=== PATIENT | female | born 2000 | race Caucasian/White ===

== ENCOUNTER 2022-05-30 19:20 | Emergency (ER) | payer OTHER ==
[2022-05-30] MEDS ORDERED: XYLOCAINE 1% HCL 20 ML MDV IJ ONE (19:21)
--- NOTE | 2022-05-30 19:27 | ERPHSYRPT ---
- History of Present Illness Time Seen by Provider: 05/30/22 19:27 Source: patient Exam Limitations: no limitations Physician History: This is a 21-year-old white female patient who approximately 3 days ago noticed some swelling and pain in the left tonsil area. Patient was seen by her primary care physician, Dr. June who diagnosed the patient with tonsillitis. She received an intramuscular dose of Rocephin followed by a prescription for Augmentin antibiotic. She took 2 doses of that medication. Today, patient states that she feels that there is greater amount of swelling in the left tonsil as well as increased left side cervical adenopathy. Patient has no stridor. She has no difficulty breathing. Father looked at the patient's oropharynx and noticed there was fibrinous exudate on her left tonsil that was not there previously. Severity: mild Prearrival Treatment: prescription meds Associated Symptoms: swollen glands (Left upper cervical chain), sore throat, No difficulty swallowing, No voice change Allergies/Adverse Reactions: cinnamon Allergy (Mild, Verified 05/30/22 19:26) Home Medications: No Reportable Medications [No Reported Medications] 08/28/15 [History] Hx Tetanus, Diphtheria Vaccination/Date Given: Yes (4 years) Hx Influenza Vaccination/Date Given: No Hx Pneumococcal Vaccination/Date Given: No Travel Risk - International Travel Have you traveled outside of the country in past 3 weeks: No - Coronavirus Screening Are you exhibiting any of the following symptoms?: No Close contact with a COVID-19 positive Pt in past 14-21 Days: No - Review of Systems Constitutional: No Symptoms Eyes: No Symptoms Ears, Nose, & Throat: Other (Mild pain when swallowing. Swollen left tonsil) Respiratory: No Symptoms, No Stridor, No Wheezing Cardiac: No Symptoms Abdominal/Gastrointestinal: No Abdominal Pain Genitourinary Symptoms: No Symptoms Musculoskeletal: No Symptoms Skin: No Symptoms Neurological: No Symptoms Psychological: No Symptoms Endocrine: No Symptoms Hematologic/Lymphatic: No Symptoms Immunological/Allergic: No Symptoms All Other Systems: Reviewed and Negative - Past Medical History Pertinent Past Medical History: No Neurological History: No Pertinent History ENT History: No Pertinent History Cardiac History: No Pertinent History Respiratory History: No Pertinent History Endocrine Medical History: No Pertinent History Musculoskeletal History: No Pertinent History GI Medical History: No Pertinent History History: No Pertinent History Psycho-Social History: No Pertinent History Female Reproductive Disorders: No Pertinent History - Past Surgical History Past Surgical History: No Neuro Surgical History: No Pertinent History Cardiac: No Pertinent History Respiratory: No Pertinent History Gastrointestinal: No Pertinent History Genitourinary: No Pertinent History Musculoskeletal: No Pertinent History Female Surgical History: No Pertinent History - Social History Smoking Status: Never smoker Exposure to second hand smoke: Yes Drug Use: none Patient Lives Alone: No - Nursing Vital Signs Nursing Vital Signs: Initial Vital Signs Temperature 97.8 F 05/30/22 19:27 Pulse Rate 89 05/30/22 19:27 Respiratory Rate 16 05/30/22 19:27 Blood Pressure 132/89 05/30/22 19:27 O2 Sat by Pulse Oximetry 98 05/30/22 19:27 Pain Scale Pain Intensity 5 - Physical Exam General Appearance: no apparent distress, alert, anxiety Eye Exam: bilateral eye: normal inspection, PERRL, EOMI Ear Exam: bilateral ear: auricle normal Nasal Exam: normal inspection Throat Exam: tonsillar exudate, tonsillar swelling (Left side left side. There is no evidence of active bleeding or external evidence of abscess. The tonsils are not close to touching 1 another.) Neck Exam: normal inspection, non-tender, supple, full range of motion, trachea midline, lymphadenopathy (L) (Upper chain cervical) Cardiovascular/Respiratory Exam: chest non-tender, no respiratory distress Abdominal Exam: non-tender Neurologic Exam: alert, oriented x 3, cooperative, traditional maori health practitioner II-XII nml as tested, normal mood/affect, nml cerebellar function, nml station & gait, sensation nml Skin Exam: normal color, warm, dry SpO2 Interpretation: normal O2 Delivery: Room Air - Course Nursing assessment & vital signs reviewed: Yes Ordered Tests: Active Orders 24 hr Category Date Time Status NECK WO CONTRAST [CT] Stat Exams 05/30/22 19:56 Taken Medication Summary Discontinued Medications Generic Name Dose Route Start Last Admin Trade Name Freq PRN Reason Stop Dose Admin Ceftriaxone Sodium 1,000 mg 05/30/22 19:56 05/30/22 20:43 Ceftriaxone Sodium 1000 Mg Inj Vial IM 05/30/22 19:57 1,000 mg STAT ONE Administration Ceftriaxone Sodium Confirm 05/30/22 20:41 Ceftriaxone Sodium 1000 Mg Inj Vial Administered 05/30/22 20:42 Dose 1,000 mg .ROUTE .STK-MED ONE Prednisolone Sodium Phosphate 20 mg 05/30/22 19:57 05/30/22 20:42 Prednisolone Sod Phosphate 5 Mg/5 Ml Ml PO 05/30/22 19:58 20 mg STAT ONE Administration Prednisolone Sodium Phosphate Confirm 05/30/22 20:41 Prednisolone Sod Phosphate 5 Mg/5 Ml Ml Administered 05/30/22 20:42 Dose 20 mg .ROUTE .STK-MED ONE - Progress Progress: improved, pain not gone completely Progress Note: 05/30/22 21:05 CAT scan of the neck/soft tissue shows scattered bilateral cervical and submandibular nodes presumed reactive. There is mild enlarged tonsils which narrows oropharynx. Medical decision making: This patient has no stridor she has no wheezing. She is laughing and joking. She does not want anything stronger than Tylenol and ibuprofen for pain. She is drinking well and tolerating her diet orally. Patient will be discharged home. She is to continue her antibiotics and I added prednisolone liquid to help with decreasing inflammation and swelling. Counseled pt/family regarding: diagnosis, need for follow-up, rad results - Departure Departure Disposition: Home Clinical Impression: Tonsillitis Condition: Stable Critical Care Time: No Referrals: JUAN ENGLISH MD [ACTIVE STAFF] - Follow up/PCP as directed Additional Instructions: Drink plenty of clear cold liquids. Take your liquid steroid as prescribed. Continue your antibiotics. Follow-up with your primary care physician for further evaluation and management. Return to the emergency department if there is stridor or wheezing or any other type of increased pain or swelling.
[2022-05-30] MEDS ORDERED: Rocephin 1000 MG INJ IM ONE (19:56)
[2022-05-30] MEDS ORDERED: Pediapred SOLUTION 5 MG/5 ML PO ONE (19:57)
[2022-05-30] MEDS ORDERED: Rocephin 1000 MG INJ ONE (20:41)
[2022-05-30] MEDS ORDERED: Pediapred SOLUTION 5 MG/5 ML ONE (20:41)
[2022-05-30 20:59] VITALS: BP 128/86; PULSE 88; O2SAT 100
--- NOTE | 2022-05-31 08:44 | XRAY ---
Indication: Left neck pain. Enlarged tonsils and lymph nodes. Abscess. Multiple contiguous axial images obtained through the neck without contrast as ordered. Comparison: None Enlarged bilateral palatine tonsils narrows the oropharynx. Scattered enlarged bilateral cervical and submandibular lymph nodes, largest on the left measuring 2.5 x 2.0 cm presumed reactive. No walled off fluid or air collection. Normal epiglottis. Parotid and submandibular glands are bilaterally symmetric. Thyroid gland homogeneous. Osseous structures intact. Base of brain and lung apices unremarkable. Impression: 1. Enlarged palatine tonsils. Rule out tonsillitis. 2. Scattered enlarged cervical/submandibular lymph nodes presumed reactive. 3. Remaining CT neck without contrast exam is negative.
== END 2022-05-30 21:12 | disposition home or self-care (01) ==
LOC: ED 19:20
DX: J03.90 Acute tonsillitis, unspecified (principal); R59.0 Localized enlarged lymph nodes
CPT/HCPCS: 70490; 96372; 99283; J0696; A9270-GY